=== PATIENT | female | born 1970 ===

== ENCOUNTER → 2019-11-29 | Outpatient (CLI) | payer OTHER | END | disposition home or self-care (01) | LOC: LAB SHORT 11:05 → PLD 11:05 | DX: D48.5 Neoplasm of uncertain behavior of skin (principal) | CPT/HCPCS: 88305 ==

== ENCOUNTER → 2021-09-30 | Outpatient (CLI) | payer OTHER | END | disposition home or self-care (01) | LOC: PLD 11:19 → LAB SHORT 11:19 | DX: D23.9 Other benign neoplasm of skin, unspecified (principal) | CPT/HCPCS: 88305 ==